=== PATIENT | female | born 1980 | race Two or more races ===

== ENCOUNTER → 2019-08-09 | Outpatient (CLI) | payer OTHER ==
[~2019-08-09] MED LIST: GADOTERATE 7.5 MMOL/15ML VIAL. IVP ONE
--- NOTE | 2019-08-09 16:45 | RAD ---
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 COMPARISON: None available. TECHNIQUE: Multiplanar MR imaging of the right foot performed both prior to and after the intravenous administration of 14 cc Dotarem.. FINDINGS: Bones: No acute osseous abnormality. Marrow signal is within normal limits. No significant degenerative changes. Musculotendinous: Intact tendons at the ankle. Normal course and caliber of the tendons throughout the imaged foot. No tenosynovitis. A lobulated, part solid and part cystic mass is seen within the dorsal/lateral aspect of the foot overlying the extensor tendons. The solid component is heterogeneously T2 hyperintense and enhancing and there is thin enhancement of the cystic component. This structure measures up to approximately 1.5 cm AP by 1.0 cm transverse and approximately 1.1 cm in depth. No similar lesion seen elsewhere. Ligaments: No acute injury of the medial or lateral ligaments of the ankle. Intact Lisfranc ligament complex. Intact spring ligament. Sinus Tarsi: Normal. Plantar fascia: Normal. IMPRESSION: Lobulated part solid and part cystic mass at the dorsal/lateral foot overlying the extensor digitorum tendons at the level of the midfoot/hindfoot articulation. This is measured at approximately 1.5 x 1.0 x 1.1 cm and is predominantly well-circumscribed. Despite being in close proximity to the extensor tendons, the imaging features are not typical of a giant cell tumor of the tendon sheath. The overall imaging appearance is nonspecific and there are multiple possible benign and malignant etiologies. Correlation with prior pathology reports and eventual histologic sampling is recommended. Electronically signed by: KELLY JONES MD (08/09/2019 4:42 PM) [id number]
== END | disposition home or self-care (01) ==
LOC: MRI 12:34
PROVIDERS: ATTEND Family Medicine
DX: R22.41 Localized swelling, mass and lump, right lower limb (principal)
CPT/HCPCS: 73720; A9575